=== PATIENT | female | born 1960 | race Caucasian/White ===

== ENCOUNTER 2018-11-20 09:56 | Inpatient (IN) | payer OTHER ==
[2018-11-11 17:18] VITALS: BMI 37.5
[~2018-11-20 09:56] MED LIST: CEFAZOLIN 2 GM in DEXTROSE 5%-WATER - 50 ML IVPB ONE; ROPIVICAINE 0.2%/MORPH PF/KETOROLAC - 51ML DISP.SYRINGE IA ONE; TRANEXAMIC ACID 1000 MG/10 ML VIAL IVPUSH ONE; VANCOMYCIN 1,000 MG in DEXTROSE 5%-WATER - 250 ML IVPB ONE
[2018-11-20] MEDS ORDERED: VANCOMYCIN 1,000 MG in DEXTROSE 5%-WATER - 250 ML IVPB ONE (10:14)
[2018-11-20] MEDS ORDERED: TRANEXAMIC ACID 1000 MG/10 ML VIAL IVPUSH ONE (10:14)
[2018-11-20] MEDS ORDERED: CEFAZOLIN 2 GM in DEXTROSE 5%-WATER - 50 ML IVPB ONE (10:14)
[2018-11-20] MEDS ORDERED: BUPIVACAINE LIPOSOME/PF (EXPAREL) 266 MG/20 ML VIAL ONE (11:59)
[2018-11-20] MEDS ORDERED: MIDAZOLAM HCL 2 MG/2 ML SINGLE DOSE VIAL ONE (11:59)
[2018-11-20] MEDS ORDERED: EPINEPHrine/PF 1 MG/1 ML (1:1,000) AMPULE ONE (12:14)
[2018-11-20] MEDS ORDERED: BUPIVACAINE HCL/PF 2.5 MG/ML - 30 ML VIAL IJ ONE ×2 (12:14→12:34)
[2018-11-20] MEDS ORDERED: KETOROLAC TROMETHAMINE 60 MG/2 ML VIAL ONE ×2 (12:14→12:34)
[2018-11-20] MEDS ORDERED: MORPHINE SULFATE 10 MG/1 ML *VIAL ONE ×2 (12:16→12:47)
[2018-11-20] MEDS ORDERED: VANCOMYCIN 1,000 MG VIAL (RESTRICTED TO ID ONLY) ONE (13:17)
[2018-11-20] MEDS ORDERED: TRANEXAMIC ACID 1000 MG/10 ML VIAL ONE ×2 (13:40→15:36)
[2018-11-20] MEDS ORDERED: ceFAZolin SODIUM 1 GM VIAL ONE ×2 (13:40→15:36)
[2018-11-20] MEDS ORDERED: DEXAMETHASONE SOD PHOSPHATE 4 MG/1 ML VIAL ONE ×2 (13:50→15:36)
[2018-11-20] MEDS ORDERED: ONDANSETRON 4 MG/2 ML VIAL ONE ×2 (13:50→15:36)
[2018-11-20] MEDS ORDERED: BENZOIN/ALOE VERA/STORAX/TOLU 58 ML BOTTLE ONE (15:23)
--- NOTE | 2018-11-20 15:49 | PN ---
Progress Note (short form) - Note Progress Note: 58F s/p LEFT total knee replacement POD #0. -Pain control: per anaesthesia team. -DVT PPx: -Chemical: ASA 81mg PO BID x 6 weeks. -Mechanical: LOLLY's, SCD's. -Incentive spirometry q15 min. -PT/OT/Rehab, OOB. -WBAT LLE; full range of motion right knee. -Post-op Ancef x 2 doses. -f/u post-op TOV: 8 hours max. -f/u drain output. -f/u AM labs. -Diet as tolerated. -Care per medical hospitalist: Dr. Earl. -Discharge planning: f/u [facility] [place] [facility] 11/28/2018; call for appointment . -Will follow. Armani Barnes MD (Orthopaedic Surgery).
[2018-11-20] MEDS ORDERED: NITROGLYCERIN SUBLINGUAL 1/150 0.4 MG TAB SL PRN (15:52)
--- NOTE | 2018-11-20 15:52 | OP ---
Operative Note - Note: Operative Date: 11/20/18 Pre-Operative Diagnosis: Left knee DJD Operation: Left total knee replacement Implants: [employer]. Femur - 3. Tibia - 3. Poly - 11mm, PS. Patella - 27mm, symmetric Post-Operative Diagnosis: Same as Pre-op Surgeon: Armani Barnes Farm Machine Tender: Hugo Barnes Anesthesiologist/CAMERA MECHANIC: Don Fisher Anesthesia: Spinal Specimens Removed: Bone, soft tissue Estimated Blood Loss (mls): 0 Drains & Tubes with Location: 1 x deep HemoVac Fluid Volume Replaced (mls): 1,000 (Crystalloid) Operative Report Dictated: Yes
[2018-11-20] MEDS ORDERED: ONDANSETRON 4 MG/2 ML VIAL IVPUSH PRN ×2 (15:53→15:54)
[2018-11-20] MEDS ORDERED: oxyCODONE HCL 5 MG TABLET PO PRN (15:53)
[2018-11-20] MEDS ORDERED: MAGNESIUM HYDROX 2400MG/30ML ORAL SUSPENSION 30 ML CUP PO PRN (15:54)
[2018-11-20] MEDS ORDERED: MAG HYDROX/AL HYDROX/SIMETH 30 ML UNIT-DOSE CUP PO PRN (15:54)
[2018-11-20] MEDS ORDERED: LACTATED RINGERS SOLUTION 1,000 ML IV SCH (16:00)
[2018-11-20] MEDS ORDERED: ACETAMINOPHEN 325 MG TABLET (FP) PO SCH (16:00)
[2018-11-20] MEDS ORDERED: ACETAMINOPHEN 325 MG TABLET (FP) ONE (16:56)
[2018-11-20] MEDS: LACTATED RINGERS SOLUTION 1,000 ML IV SCH (18:05)
--- NOTE | 2018-11-20 18:48 | HP ---
Admitting History and Physical - Admission Chief Complaint: left knee pain History of Present Illness: 58 yo with worsening left knee pain came in for TKR with Dr Barnes. currently denies chest pain, palpitations, nausea, vomiting, diarrhea, fever History Source: Patient Limitations to Obtaining History: No Limitations - Past Medical History Cardiovascular: Yes: HTN Psych: Yes: Depression - Smoking History Smoking history: Former smoker Have you smoked in the past 12 months: Yes If you are a former smoker, when did you quit?: 2008 - Alcohol/Substance Use Hx Alcohol Use: Yes (RARELY) Home Medications - Allergies Allergies/Adverse Reactions: Allergies Allergy/AdvReac Type Severity Reaction Status Date / Time No Known Allergies Allergy Verified 11/11/18 16:58 - Home Medications Home Medications: Ambulatory Orders Aspirin [ASA -] 81 mg PO DAILY 11/11/18 Atorvastatin Ca [Lipitor] 20 mg PO HS 11/11/18 Budesonide/Formeterol Fumarate [SYMBICORT 160/4.5mcg -] 1 inh PO BID 11/11/18 Escitalopram Oxalate [Lexapro -] 10 mg PO HS 11/11/18 Famotidine 20 mg PO DAILY 11/11/18 Isosorbide Mononitrate [Isosorbide Mononitrate ER] 30 mg PO DAILY 11/11/18 Losartan Potassium 25 mg PO DAILY 11/11/18 Metoprolol Succinate 50 mg PO BID 11/11/18 Nitroglycerin [Nitrostat] 0.4 mg SL DAILY PRN 11/11/18 Ranolazine [Ranexa] 1,000 mg PO BID 11/11/18 Tiotropium [place] [Spiriva] 1 inh PO DAILY 11/11/18 Review of Systems - Review of Systems Constitutional: reports: No Symptoms, Chills Eyes: reports: No Symptoms HENT: reports: No Symptoms Neck: reports: No Symptoms Cardiovascular: reports: No Symptoms Respiratory: reports: No Symptoms Gastrointestinal: reports: No Symptoms Genitourinary: reports: No Symptoms Breasts: reports: No Symptoms Reported Musculoskeletal: reports: Joint Pain Integumentary: reports: No Symptoms Neurological: reports: No Symptoms Endocrine: reports: No Symptoms Hematology/Lymphatic: reports: No Symptoms Psychiatric: reports: No Symptoms (6) Physical Examination Vital Signs: Vital Signs Temperature 98.1 F 11/20/18 17:57 Pulse Rate 80 11/20/18 17:57 Respiratory Rate 18 11/20/18 17:57 Blood Pressure 118/53 L 11/20/18 17:57 O2 Sat by Pulse Oximetry (%) 100 11/20/18 17:57 Constitutional: Yes: Well Nourished, No Distress Eyes: Yes: WNL HENT: Yes: WNL Neck: Yes: WNL Cardiovascular: Yes: WNL Respiratory: Yes: WNL Gastrointestinal: Yes: WNL Renal/: Yes: WNL Musculoskeletal: Yes: Joint Stiffness Extremities: Yes: WNL Edema: No Peripheral Pulses WNL: Yes Integumentary: Yes: WNL Wound/Incision: Yes: Clean/Dry, Well Approximated, Dressing Dry and Intact Neurological: Yes: WNL ...Motor Strength: WNL Psychiatric: Yes: WNL Assessment/Plan 58 yo lady S/P left TKR. cont pain management. incentive spirometry. -GI, DVT prophylaxis. -cont stool sofeteners to avoid opoioid induced constipation -CAD: on aspirin, atorvastatin -major anxiety and depression: on lexapro -HTN: cont imdur, toprol XL, losartan -chronic COPD: cont bronchodilators -ID: ancef and vanco given empirically. -oral diet -PT/OT/OOB as tolerated -AM labs pending -assessment and plan discussed with pt and medical staff
[2018-11-20] MEDS: oxyCODONE HCL 5 MG TABLET PO PRN ×2 (20:13→22:56)
[2018-11-20] MEDS: ASPIRIN COATED 81 MG TABLET.EC PO SCH (22:29)
[2018-11-20] MEDS: ATORVASTATIN CA 20 MG TABLET (FP) PO SCH (22:29)
[2018-11-20] MEDS: RANOLAZINE E.R. 500 MG TABLET (FP) PO SCH (22:29)
[2018-11-20] MEDS: SENNOSIDES/DOCUSATE COMBO (SENNA PLUS) TABLET (UD) PO SCH (22:29)
[2018-11-20] MEDS: ESCITALOPRAM OXALATE 10 MG TABLET (FP) PO SCH (22:32)
[2018-11-20] MEDS: BUDESONIDE/FORMETEROL FUMARATE 160/4.5 mcg INHALER IH SCH (22:35)
[2018-11-20] MEDS: CEFAZOLIN 2 GM/D5W 2 GM/50 ML ML IVPB SCH (22:56)
[2018-11-20] MEDS: ACETAMINOPHEN 325 MG TABLET (FP) PO SCH (23:01)
[2018-11-21] MEDS ORDERED: VANCOMYCIN 1 GRAM (PRE-DOCKED) 1,000 MG/250 ML BAG IVPB ONE (00:01)
--- NOTE | 2018-11-21 05:57 | OP ---
DATE OF OPERATION: DATE OF DICTATION: 11/20/2018 SURGEON: Armani Barnes MD ASSISTANTS: Hugo Barnes MD and KAILYN Larsen PREOPERATIVE DIAGNOSIS: Tricompartment osteoarthritis, left knee. POSTOPERATIVE DIAGNOSIS: Tricompartment osteoarthritis, left knee. OPERATION PERFORMED: Left total knee arthroplasty (posterior stabilized, cemented [place]). ANESTHESIA: Conscious sedation with spinal anesthesia and peripheral nerve block. ANTIBIOTICS GIVEN: Kefzol 2 g, vancomycin 1 g preop; Kefzol 1 g given at the time of release of the tourniquet. TOURNIQUET TIME: 1 hour and 40 minutes. OPERATION DETAILS: Patient correctly identified, brought in the operating room. Left lower extremity was prepped and draped in the routine manner with Betadine scrub solution, wiped off with alcohol, DuraPrep applied. Timeout was called. Imaging was available for intraoperative evaluation. Under a bloodless field, midline incision made. Dissection was taken through the skin and subcutaneous tissues to the prepatellar and quadriceps mechanism. The epimysium of the medial vastus muscle was lifted off the muscle. The proximal tibia soft tissue was dissected off the actual bone bed. The incision was curved at the level of the inferior pole of the patella to the posteromedial aspect of the knee to itself up with the vastus medialis dissection. The vastus medialis was then dissected off the intermuscular septum as well as the linea aspera diathermization of small vessels with bipolar Bovie utilized. This enabled easy freeing of the vastus medialis accordingly. The knee revealed the presence of severe tricompartment osteoarthritis. The patella was subluxed laterally with the vastus muscle as one en bloc as a subvastus approach. The extramedullary jig system of [employer] utilized for the tibial cut. The tibial cut was made 90 degrees to the shaft of the tibia. The sizing was for a size 3 component, and the appropriate preparation of the tibial bed performed using the appropriate initial starter drill and the finned broach for the tibial component. Once this had been performed, the femur entry was performed just above the intercondylar notch. The femoral jig was set, keeping the joint line in original position, by setting it to 8 mm distal femoral resection. The external rotation of the component was 3 degrees. The jig was set to simulate [place] line and the transepicondylar axis. Measurement for the jig system was for also a size 3 femoral component. The appropriate block was seated on the distal femoral bone bed, and the cuts were made appropriately using an oscillating saw. Once this had been performed, a sham realignment was performed to simply look at the limb alignment and the parallelity of the tibial and femoral cuts in the coronal plane. This proved to be excellent. The flexion and extension gaps were measured at 11 mm. The patella was then cut from, again using [place] principles from patella to quadriceps tendon, and a 27-mm jig seated onto the patella for appropriate seating of the patella component. Once we were satisfied with the trialing of all the components and this measured size 3 femur, size 3 tibia with an 11-mm posterior-stabilized spacer and associated tibial cut for a 3.7-mm patellar button and tracking of the appropriate components was noted to be excellent and stability in both flexion and extension in the coronal and sagittal plane noted to be well maintained and appropriate tension of the collateral ligaments tested at 90 degrees of flexion, we elected to go ahead with cementing of these 3 above-mentioned components. The bone bed was thoroughly lavaged with saline. Cementing was in 1 stage, first tibia, then femur, and then patella. All extraneous cement was removed. Once the cement had cured, the tissues were washed readily and rid of all loose fragmented cement. A composite of pain management cocktail was inserted into the periarticular tissues liberally throughout for postoperative pain management. The polyethylene 11-mm posterior-stabilized component was inserted. The knee was reduced, and excellent alignment and tracking were noted throughout. No complications. Closure: First a 1/8-inch Hemovac drain was placed into the subvastus bed, and the soft tissues were closed with number 1 Vicryl, subcutaneous 1 and 2-0 Vicryl, skin 3-0 Monocryl with Steri-Strips. A light dressing applied. No complications. Postop x-rays were excellent. Patient transferred to the floor thereafter. MD COMPA Espinosa/[id number] MTDD
[2018-11-21] MEDS: ACETAMINOPHEN 325 MG TABLET (FP) PO SCH ×3 (06:49→18:00)
[2018-11-21] MEDS: CEFAZOLIN 2 GM/D5W 2 GM/50 ML ML IVPB SCH (06:54)
[2018-11-21] MEDS: oxyCODONE HCL 5 MG TABLET PO PRN ×2 (06:54→13:28)
[2018-11-21 08:02] LABS: HEMATOCRIT 33.4 % (32.4-45.2); HEMOGLOBIN 11.4 GM/dl (10.7-15.3); MCH 31.9 pg (25.7-33.7); MCHC 34.1 g/dl (32.0-36.0); MEAN CELL VOLUME 93.5 fl (80-96); MEAN PLT VOLUME 10.1 fl (7.5-11.1); PLATELET COUNT 168 K/MM3 (134-434); RBC 3.57 M/mm3 (3.60-5.2); RDW 12.6 % (11.6-15.6); WHITE BLOOD COUNT 9.3 K/mm3 (4.0-10.8)
[2018-11-21 08:22] LABS: CALCIUM 8.6 mg/dl (8.5-10); CREATININE 0.7 mg/dl (0.55-1.3); POTASSIUM 4.6 mmol/L (3.5-5.1)
[2018-11-21] MEDS ORDERED: PT OWN MED DRAWER 7, Y5N ONE ×2 (09:28→21:23)
[2018-11-21] MEDS: FAMOTIDINE 20 MG TABLET PO SCH (10:35)
[2018-11-21] MEDS: ISOSORBIDE MONONITRATE 30 MG TAB.SR.24H (FP) PO SCH (10:35)
[2018-11-21] MEDS: ASPIRIN COATED 81 MG TABLET.EC PO SCH ×2 (10:36→21:37)
[2018-11-21] MEDS: PANTOPRAZOLE 40 MG TABLET (FP) PO SCH (10:36)
[2018-11-21] MEDS: RANOLAZINE E.R. 500 MG TABLET (FP) PO SCH ×2 (10:36→21:37)
[2018-11-21] MEDS: SENNOSIDES/DOCUSATE COMBO (SENNA PLUS) TABLET (UD) PO SCH ×2 (10:37→21:37)
[2018-11-21] MEDS: LOSARTAN POTASSIUM 25 MG TABLET PO SCH (10:40)
[2018-11-21] MEDS: TIOTROPIUM BROMIDE 2.5 MCG (SPIRIVA) RESPIMAT INHALER IH SCH (10:42)
[2018-11-21] MEDS: BUDESONIDE/FORMETEROL FUMARATE 160/4.5 mcg INHALER IH SCH ×2 (10:42→21:41)
--- NOTE | 2018-11-21 11:41 | SPA.POSTOP ---
- POST-OP NOTE POD #1 s/p Left total knee replacment Denies n/v/f/c, CP or SOB. Slight dizziness with OOB to chair this am, resolved now. Last Vital Signs Temp Pulse Resp BP Pulse Ox 97.8 F 77 19 162/70 94 L 11/21/18 05:00 11/21/18 05:00 11/21/18 05:00 11/21/18 05:00 11/21/18 08:19 [place]: 150ml serosangrenous Physical Exam General: No acute distress. Pulm: Clear to auscultation bilat anteriorly Cor: Regular rhythm Abd: Soft. Non-tender. No distention LE: Soft, non-tender bilat. SCD's bilat. 5/5 dorsi/plantar flexion, EHL b/l. Dressing c/d/i CBC, BMP 11/21/18 07:05 11/21/18 07:05 A/P: 58 yo female s/p Left TKR Diet as tolerated, oob to chair and ambulate with PT today. Pain managemnt with oral pain meds. DVT ppx with SCD/aspirin 81 mg oral bid Stool softners D/w Dr. Barnes
--- NOTE | 2018-11-21 15:37 | PN ---
Progress Note (short form) - Note Progress Note: S: Pt. sitting in chair. No c/o. Ambulating with assist. O: VAS 2/10 A/P: POD #1 s/p Left TKR 1. continue pain meds as ordered 2. no anesthetic complications
[2018-11-21] MEDS: LACTATED RINGERS SOLUTION 1,000 ML IV SCH (18:00)
--- NOTE | 2018-11-21 18:28 | PN ---
Progress Note, Physician Chief Complaint: left knee pain - Current Medication List Current Medications: Active Medications Acetaminophen (Tylenol -) 650 mg PO Q6H [facility] Last Admin: 11/21/18 18:00 Dose: 650 mg Al Hydroxide/Mg Hydroxide (Mylanta Oral Suspension -) 30 ml PO Q4H PRN PRN Reason: DYSPEPSIA Aspirin (Ecotrin -) 81 mg PO BID [facility] Last Admin: 11/21/18 10:36 Dose: 81 mg Atorvastatin Calcium (Lipitor -) 20 mg PO HS [facility] Last Admin: 11/20/18 22:29 Dose: 20 mg Budesonide/Formoterol Fumarate (Symbicort 160/4.5mcg -) 1 puff IH BID [facility] Last Admin: 11/21/18 10:42 Dose: 1 puff Escitalopram Oxalate (Lexapro -) 10 mg PO [facility] Last Admin: 11/20/18 22:32 Dose: 10 mg Famotidine (Pepcid -) 20 mg PO DAILY [facility] Last Admin: 11/21/18 10:35 Dose: 20 mg Lactated Ringer's (Lactated Ringers Solution) 1,000 mls @ 125 mls/hr IV ASDIR [facility] Last Admin: 11/21/18 18:00 Dose: Not Given Isosorbide Mononitrate (Imdur -) 30 mg PO DAILY [facility] Last Admin: 11/21/18 10:35 Dose: 30 mg Losartan Potassium (Cozaar -) 25 mg PO DAILY [facility] Last Admin: 11/21/18 10:40 Dose: 25 mg Magnesium Hydroxide (Milk Of Magnesia -) 30 ml PO PRN PRN PRN Reason: CONSTIPATION Metoprolol Succinate (Toprol Xl -) 50 mg PO BID [facility] Last Admin: 11/21/18 10:35 Dose: 50 mg Nitroglycerin (Nitrostat -) 0.4 mg SL DAILY PRN PRN Reason: CHEST PAIN Ondansetron HCl (Zofran Injection) 4 mg IVPUSH Q6H PRN PRN Reason: NAUSEA AND/OR VOMITING Oxycodone HCl (Roxicodone -) 5 mg PO Q3H PRN PRN Reason: PAIN LEVEL 1-5 Oxycodone HCl (Roxicodone -) 10 mg PO Q3H PRN PRN Reason: PAIN LEVEL 6-10 Last Admin: 11/21/18 13:28 Dose: 10 mg Pantoprazole Sodium (Protonix -) 40 mg PO DAILY [facility] Last Admin: 11/21/18 10:36 Dose: 40 mg Ranolazine (Ranexa -) 1,000 mg PO BID [facility] Last Admin: 11/21/18 10:36 Dose: 1,000 mg Senna/Docusate Sodium (Pericolace -) 2 tablet PO BID [facility] Last Admin: 11/21/18 10:37 Dose: 2 tablet Tiotropium [place] (Spiriva Respimat) 2 puff IH DAILY [facility] Last Admin: 11/21/18 10:42 Dose: 2 puff - Objective Vital Signs: Vital Signs Temperature 98.6 F 11/21/18 15:09 Pulse Rate 74 11/21/18 15:09 Respiratory Rate 18 11/21/18 15:09 Blood Pressure 112/43 L 11/21/18 15:09 O2 Sat by Pulse Oximetry (%) 94 L 11/21/18 15:09 Constitutional: Yes: Well Nourished, No Distress Eyes: Yes: WNL HENT: Yes: WNL Neck: Yes: WNL Cardiovascular: Yes: WNL Respiratory: Yes: WNL Gastrointestinal: Yes: WNL Genitourinary: Yes: WNL Musculoskeletal: Yes: WNL, Joint Stiffness Extremities: Yes: WNL Edema: No Peripheral Pulses WNL: Yes Integumentary: Yes: WNL Wound/Incision: Yes: Clean/Dry, Well Approximated, Dressing Dry and Intact Neurological: Yes: WNL ...Motor Strength: WNL Psychiatric: Yes: WNL Labs: CBC, BMP 11/21/18 07:05 11/21/18 07:05 Assessment/Plan 58 yo lady S/P left TKR POD#1. cont pain management. incentive spirometry. -GI, DVT prophylaxis. -cont stool sofeteners to avoid opoioid induced constipation -CAD: on aspirin, atorvastatin -major anxiety and depression: on lexapro -HTN: cont imdur, toprol XL, losartan -chronic COPD: cont bronchodilators. no pulmonary complaints. -ID: ancef and vanco given empirically. -oral diet; well tolerated -PT/OT/OOB as tolerated -assessment and plan discussed with pt and medical staff -PA home planned within 48 hours.
[2018-11-21] MEDS: ATORVASTATIN CA 20 MG TABLET (FP) PO SCH (21:37)
[2018-11-21] MEDS: ESCITALOPRAM OXALATE 10 MG TABLET (FP) PO SCH (21:37)
[2018-11-22] MEDS: ACETAMINOPHEN 325 MG TABLET (FP) PO SCH ×3 (01:24→13:38)
[2018-11-22] MEDS: oxyCODONE HCL 5 MG TABLET PO PRN ×3 (04:56→13:38)
[2018-11-22 08:03] LABS: HEMATOCRIT 31.8 % (32.4-45.2); HEMOGLOBIN 10.6 GM/dl (10.7-15.3); MCH 31.5 pg (25.7-33.7); MCHC 33.4 g/dl (32.0-36.0); MEAN CELL VOLUME 94.3 fl (80-96); MEAN PLT VOLUME 9.8 fl (7.5-11.1); PLATELET COUNT 156 K/MM3 (134-434); RBC 3.37 M/mm3 (3.60-5.2); RDW 13.3 % (11.6-15.6); WHITE BLOOD COUNT 5.7 K/mm3 (4.0-10.8)
[2018-11-22] MEDS: ASPIRIN COATED 81 MG TABLET.EC PO SCH (09:41)
[2018-11-22] MEDS: LOSARTAN POTASSIUM 25 MG TABLET PO SCH (09:42)
[2018-11-22] MEDS: FAMOTIDINE 20 MG TABLET PO SCH (09:42)
[2018-11-22] MEDS: PANTOPRAZOLE 40 MG TABLET (FP) PO SCH (09:42)
[2018-11-22] MEDS: ISOSORBIDE MONONITRATE 30 MG TAB.SR.24H (FP) PO SCH (09:42)
[2018-11-22] MEDS: RANOLAZINE E.R. 500 MG TABLET (FP) PO SCH (09:42)
[2018-11-22] MEDS: SENNOSIDES/DOCUSATE COMBO (SENNA PLUS) TABLET (UD) PO SCH (09:42)
[2018-11-22] MEDS: TIOTROPIUM BROMIDE 2.5 MCG (SPIRIVA) RESPIMAT INHALER IH SCH (09:43)
[2018-11-22] MEDS: BUDESONIDE/FORMETEROL FUMARATE 160/4.5 mcg INHALER IH SCH (09:44)
--- NOTE | 2018-11-22 10:05 | SPA.POSTOP ---
- POST-OP NOTE POD #2 s/p Left knee replacment Patient resting comfortably. Pain management via prn meds. Pt passing flatus/ stool via clostomy. Denies n/v/f/c, CP or SOB. Last Vital Signs Temp Pulse Resp BP Pulse Ox 99.0 F 72 16 120/54 L 96 /05/01 06:39 11/22/18 06:39 11/22/18 08:25 11/22/18 06:39 11/22/18 08:25 Physical Exam General: No acute distress. Pulm: Clear to auscultation bilat anteriorly Cor: Regular rhythm Abd: Soft. Non-tender. No distention LE: Soft, non-tender bilat. SCD's bilat. 5/5 dorsi/plantar flexion/ EHL b/l Left surgical knee dressing c/d/i, hemovac drain removed(tip intact) CBC, BMP 11/22/18 07:21 11/21/18 07:05 A/p: 58 yo female s/p Left total knee replacement Plan for discharge today with home services Surgical dressing to remain in place. No showers/baths. Oral pain medications for pain managment and stool softners for constipation. Follow-up with Dr. Barnes next week D/w Dr. Barnes
--- NOTE | 2018-11-22 12:14 | DS ---
Physical Examination Vital Signs: Vital Signs Temperature 98.8 F 11/22/18 10:00 Pulse Rate 79 11/22/18 10:00 Respiratory Rate 17 11/22/18 10:00 Blood Pressure 111/48 L 11/22/18 10:00 O2 Sat by Pulse Oximetry (%) 96 11/22/18 10:00 Constitutional: Yes: Well Nourished, No Distress Eyes: Yes: WNL HENT: Yes: WNL Neck: Yes: WNL Cardiovascular: Yes: WNL Respiratory: Yes: WNL Gastrointestinal: Yes: WNL Renal/: Yes: WNL Musculoskeletal: Yes: WNL, Joint Stiffness Extremities: Yes: WNL Edema: No Peripheral Pulses WNL: Yes Integumentary: Yes: WNL Wound/Incision: Yes: Clean/Dry, Well Approximated Neurological: Yes: WNL ...Motor Strength: WNL Psychiatric: Yes: WNL Labs: CBC, BMP 11/22/18 07:21 11/21/18 07:05 Discharge Summary Reason For Visit: BURSITIS LEFT KNEE Hospital Course: 58 yo lady S/P left TKR POD#2 cont pain management. incentive spirometry. -GI, DVT prophylaxis. -cont stool sofeteners to avoid opoioid induced constipation -CAD: on aspirin, atorvastatin -major anxiety and depression: on lexapro -HTN: cont imdur, toprol XL, losartan -chronic COPD: cont bronchodilators. no pulmonary complaints. -ID: ancef and vanco given empirically. -oral diet; well tolerated -PT/OT/OOB as tolerated -DC planned for today - Instructions Diet, Activity, Other Instructions: Dr. Barnes Discharge Instructions for Knee Replacement Post Operative Instructions Physical activity Physical Therapist will come to your home for the first 5 days. You will be set up with outpatient PT at your first post-operative visit. Use assistive devices for ambulation at all times. Weight bearing as tolerated on your surgical side. Do not put pillow under knee. May put pillow under heel. Wound care Leave your surgical dressing in place. Do not change the dressing until seen by your surgeon in the office. No baths or showers. Do not submerge your incision. Do not apply any ointments or lotions to your incision. Please call the office if your dressing is soiled/dirty or is falling off. Apply Graduated Compression Stockings (TEDS) to both lower extremities - remove daily for hygiene ONLY. Diet There are no dietary restrictions. Eat healthy, high-fiber foods. Drink 6 to 8 glasses of liquid each day. This will assist in keeping your bowels are regular. Pain management Any pain prescription medication ordered should be taken as prescribed for moderate to severe pain. Do not take additional Tylenol while taking Percocet. Take Aspirin 81 mg two times a day for a total of 6 weeks to prevent blood clots. Call Dr. Barnes for any of the following: Severe pain not relieved by medication Fever of 101 or higher Excessive bleeding or drainage on dressing Inability to urinate If you experience chest pain or shortness of breath, please seek emergency care immediately. Please call the office at to confirm your post-op appointment for the week following surgery. [employer] [phone] - Home Medications Comprehensive Discharge Medication List: Ambulatory Orders Atorvastatin Ca [Lipitor] 20 mg PO HS 11/11/18 Budesonide/Formeterol Fumarate [SYMBICORT 160/4.5mcg -] 1 inh PO BID 11/11/18 Escitalopram Oxalate [Lexapro -] 10 mg PO HS 11/11/18 Famotidine 20 mg PO DAILY 11/11/18 Isosorbide Mononitrate [Isosorbide Mononitrate ER] 30 mg PO DAILY 11/11/18 Losartan Potassium 25 mg PO DAILY 11/11/18 Metoprolol Succinate 50 mg PO BID 11/11/18 Nitroglycerin [Nitrostat] 0.4 mg SL DAILY PRN 11/11/18 Ranolazine [Ranexa] 1,000 mg PO BID 11/11/18 Tiotropium [place] [Spiriva] 1 inh PO DAILY 11/11/18 Acetaminophen [Tylenol .Regular Strength -] 1,000 mg PO Q8H tablet 11/22/18 Aspirin Coated [Ecotrin -] 81 mg PO BID #90 tablet.ec 11/22/18 Docusate Sodium [Colace -] 100 mg PO BID #14 capsule 11/22/18 Oxycodone HCl 5 mg PO Q6H PRN #30 tablet MDD 8 11/22/18
[2018-11-22 13:57] VITALS: BP 110/49; PULSE 82; TEMP 99
--- NOTE | 2018-11-22 16:05 | PATH ---
Surgical Pathology Report Patient Name: ROLAN MAHARAJ Med. Rec. #: [id number] /Age/Gender: 1960 (Age: 58) / F Account: [id number] Location: [facility] MED-SURG Taken: 11/20/2018 Received: 11/20/2018 Reported: 11/22/2018 Physicians: Armani Barnes M.D. Specimen(s) Received LEFT KNEE BONES Clinical History Bursitis left knee Final Diagnosis KNEE BONES, LEFT,TOTAL KNEE REPLACEMENT: DEGENERATIVE JOINT DISEASE. Electronically Signed Sultana Ybarra M.D. Gross Description Received in formalin labeled "left knee bones," is a 9.5 x 9.0 x 1.5 cm aggregate of multiple portions of bone and soft tissue. The tibial plateau measures 6.9 x 5.0 x 1.8 cm. The articular surfaces are romano-yellow and focally granular. The underlying trabecular bone is yellow and hard. Sieve Repairer sections are submitted in one cassette, following decalcification. /11/21/2018 [facility]
== END 2018-11-22 13:45 | disposition home health service (06) | DRG 470 ==
LOC: FM/S 09:56
PROVIDERS: ADMIT Orthopaedic Surgery Orthopaedic Surgery of the Spine; ATTEND Internal Medicine
PROC: 0SRD0J9 Replacement of Left Knee Joint with Synthetic Substitute, Cemented, Open Approach (ICD-10-PCS; principal; 2018-11-20 14:08)
DX: M17.12 Unilateral primary osteoarthritis, left knee (principal); I10 Essential (primary) hypertension; I25.10 Atherosclerotic heart disease of native coronary artery without angina pectoris; F41.8 Other specified anxiety disorders; J44.9 Chronic obstructive pulmonary disease, unspecified; Z87.891 Personal history of nicotine dependence
CPT/HCPCS: 36415; 73560-TC-LT-FY; 80048; 85027; 88304-TC; 88311-TC; 94760; 97116-GP; 97163-GP

== ENCOUNTER 2019-06-11 08:00 | Inpatient (IN) | payer OTHER ==
[2019-06-05 11:45] VITALS: BMI 38.5
[2019-06-11] MEDS ORDERED: TRANEXAMIC ACID 1000 MG/10 ML VIAL IVPUSH ONE (12:00)
[2019-06-11] MEDS ORDERED: CEFAZOLIN 2 GM in DEXTROSE 5%-WATER - 50 ML IVPB ONE (12:00)
[2019-06-11] MEDS ORDERED: MIDAZOLAM HCL 2 MG/2 ML SINGLE DOSE VIAL ONE ×2 (12:29→16:20)
[2019-06-11] MEDS ORDERED: SODIUM CHLORIDE 0.9% P/F 10 ML VIAL IJ ONE ×2 (12:30→14:24)
[2019-06-11] MEDS ORDERED: BUPIVACAINE LIPOSOME/PF (EXPAREL) 266 MG/20 ML VIAL ONE (12:30)
[2019-06-11] MEDS ORDERED: BENZOIN/ALOE VERA/STORAX/TOLU 58 ML BOTTLE ONE (13:58)
[2019-06-11] MEDS ORDERED: TRANEXAMIC ACID 1000 MG/10 ML VIAL ONE (14:24)
[2019-06-11] MEDS ORDERED: DEXAMETHASONE SOD PHOSPHATE 4 MG/1 ML VIAL ONE ×2 (14:24→15:12)
[2019-06-11] MEDS ORDERED: ONDANSETRON 4 MG/2 ML VIAL ONE ×2 (14:24→15:12)
[2019-06-11] MEDS ORDERED: ceFAZolin SODIUM 1 GM VIAL ONE (14:24)
[2019-06-11] MEDS ORDERED: PHENYLEPHRINE HCL 10 MG/1 ML SINGLE DOSE VIAL ONE (14:50)
[2019-06-11] MEDS ORDERED: MAG HYDROX/AL HYDROX/SIMETH 30 ML UNIT-DOSE CUP PO PRN (16:35)
[2019-06-11] MEDS ORDERED: ONDANSETRON 4 MG/2 ML VIAL IVPUSH PRN ×2 (16:35→17:38)
[2019-06-11] MEDS ORDERED: MAGNESIUM HYDROX 2400MG/30ML ORAL SUSPENSION 30 ML CUP PO PRN (16:35)
--- NOTE | 2019-06-11 16:42 | PN ---
Progress Note (short form) - Note Progress Note: S/P R TKA POD #0 - Pain control. -DVT PPx: -Chemical: ASA 81 mg po BID x 6 weeks -Mechanical: LOLLY's, SCD's -Incentive Spirometry. -PT/OT/Rehab, OOB. -WBAT RLE. -f/u drain output -f/u am labs. -Care per medical hospitalist team. -Discharge planning: f/u [facility] [place] office administrative professional for appointment: -Will follow. Armani Barnes MD (Orthopaedic Surgery)
--- NOTE | 2019-06-11 16:44 | OP ---
Operative Note - Note: Operative Date: 06/11/19 Pre-Operative Diagnosis: right Knee osteoarthritis Operation: right total knee arthroplasty Post-Operative Diagnosis: Same as Pre-op Surgeon: Armani Barnes Small Craft Operator: Hugo Barnes Anesthesiologist/WIRE SPINNER: John Rebolledo Anesthesia: Spinal, Local (block with sedation) Specimens Removed: distal femur, proximal tibia, partial patella Estimated Blood Loss (mls): 100 Drains & Tubes with Location: hemavac right knee Operative Report Dictated: Yes
[2019-06-11] MEDS ORDERED: LACTATED RINGERS SOLUTION 1,000 ML IV SCH ×2 (16:45→17:45)
[2019-06-11] MEDS ORDERED: oxyCODONE HCL 5 MG TABLET PO PRN (17:38)
[2019-06-11] MEDS ORDERED: ACETAMINOPHEN 1000 MG/100 ML VIAL (NON FORMULARY) IVPB ONE (17:38)
[2019-06-11] MEDS ORDERED: ACETAMINOPHEN INJECTION 100 ML IVPB ONE (17:41)
[2019-06-11] MEDS ORDERED: NITROGLYCERIN SUBLINGUAL 1/150 0.4 MG TAB SL PRN (20:06)
--- NOTE | 2019-06-11 20:06 | HP ---
HISTORY OF PRESENT ILLNESS: 59 year-old female with a PMH significant for HTN, HLD, asthma, COPD, CAD s/p ABIOLA x 1, GERD, iron-deficiency anemia, depression, and right knee osteoarthritis s/p right total knee arthroplasty with Dr. Barnes on 06/11/19. Recent Travel: No PAST MEDICAL HISTORY: Hypertension Hyperlipidemia Asthma COPD Coronary artery disease GERD Iron-deficiency anemia Depression PAST SURGICAL HISTORY: Cardiac drug-eluting stent 2014 Bowel resection with ileoanbal pouch 2017 Bilateral carpal tunnel release Cervical spine surgery x 2 Bilateral Lasik surgery Gastric bypass 2017 Portacath placement Social History: , certified residential medication aide on disability Smoking: former, smoked 34 years Alcohol: no Drugs: no Family history: mother breast cancer, father heart disease Allergies No Known Allergies Allergy (Verified 06/11/19 10:56) HOME MEDICATIONS: Home Medications Medication Instructions Recorded Atorvastatin Ca [Lipitor] 20 mg PO HS 11/11/18 Budesonide/Formeterol Fumarate 1 inh PO BID 11/11/18 [SYMBICORT 160/4.5mcg -] Escitalopram Oxalate [Lexapro -] 10 mg PO HS 11/11/18 Famotidine 20 mg PO DAILY 11/11/18 Isosorbide Mononitrate [Isosorbide 30 mg PO DAILY 11/11/18 Mononitrate ER] Losartan Potassium 25 mg PO DAILY 11/11/18 Metoprolol Succinate 50 mg PO BID 11/11/18 Nitroglycerin [Nitrostat] 0.4 mg SL DAILY PRN 11/11/18 Ranolazine [Ranexa] 1,000 mg PO BID 11/11/18 Tiotropium [place] [Spiriva] 1 inh PO DAILY 11/11/18 Acetaminophen [Tylenol .Regular 1,000 mg PO Q8H tablet 11/22/18 Strength -] Aspirin Coated [Ecotrin -] 81 mg PO HS 06/05/19 REVIEW OF SYSTEMS CONSTITUTIONAL: Absent: fever, chills, diaphoresis, generalized weakness, malaise, loss of appetite, weight change HEENT: Absent: rhinorrhea, nasal congestion, throat pain, throat swelling, difficulty swallowing, mouth swelling, ear pain, eye pain, visual changes CARDIOVASCULAR: Absent: chest pain, syncope, palpitations, irregular heart rate, lightheadedness , peripheral edema RESPIRATORY: Absent: cough, shortness of breath, dyspnea with exertion, orthopnea, wheezing, stridor, hemoptysis GASTROINTESTINAL: Absent: abdominal pain, abdominal distension, nausea, vomiting, diarrhea, constipation, melena, hematochezia GENITOURINARY: Absent: dysuria, frequency, urgency, hesitancy, hematuria, flank pain, genital pain MUSCULOSKELETAL: Absent: myalgia, arthralgia, joint swelling, back pain, neck pain SKIN: Absent: rash, itching, pallor HEMATOLOGIC/IMMUNOLOGIC: Absent: easy bleeding, easy bruising, lymphadenopathy, frequent infections ENDOCRINE: Absent: unexplained weight gain, unexplained weight loss, heat intolerance, cold intolerance NEUROLOGIC: Absent: headache, focal weakness or paresthesias, dizziness, unsteady gait, seizure, mental status changes, bladder or bowel incontinence PSYCHIATRIC: Absent: anxiety, depression, suicidal or homicidal ideation, hallucinations. PHYSICAL EXAMINATION Vital Signs - 24 hr 06/11/19 06/11/19 06/11/19 10:53 17:24 17:25 Temperature 97.9 F 97.5 F L Pulse Rate 65 72 74 Respiratory 18 17 18 Rate Blood Pressure 130/72 133/63 125/60 O2 Sat by Pulse 100 100 Oximetry (%) 06/11/19 06/11/19 06/11/19 17:30 17:35 17:40 Temperature Pulse Rate 72 71 70 Respiratory 18 16 16 Rate Blood Pressure 123/58 L 130/53 L 124/52 L O2 Sat by Pulse 100 99 99 Oximetry (%) 06/11/19 06/11/19 06/11/19 17:55 18:10 18:58 Temperature 97.5 F L 98 F Pulse Rate 71 72 76 Respiratory 17 16 18 Rate Blood Pressure 123/54 L 121/49 L 122/55 L O2 Sat by Pulse 99 98 100 Oximetry (%) GENERAL: Awake, alert, and fully oriented, in no acute distress. HEAD: Normal with no signs of trauma. EYES: Pupils equal, round and reactive to light, extraocular movements intact, sclera anicteric, conjunctiva clear. No lid lag. EARS, NOSE, THROAT: Ears normal, nares patent, oropharynx clear without exudates. Moist mucous membranes. NECK: Normal range of motion, supple without lymphadenopathy, JVD, or masses. LUNGS: Breath sounds equal, clear to auscultation bilaterally. No wheezes, and no crackles. No accessory muscle use. HEART: Regular rate and rhythm, normal S1 and S2 without murmur, rub or gallop. ABDOMEN: Soft, nontender, not distended, normoactive bowel sounds, no guarding, no rebound, no masses. No hepatomegaly or splenomegaly. MUSCULOSKELETAL: Normal range of motion at all joints. No bony deformities or tenderness. No CVA tenderness. UPPER EXTREMITIES: 2+ pulses, warm, well-perfused. No cyanosis. No clubbing. No peripheral edema. RIGHT LOWER EXTREMITY: Surgical dressings c/d/i; ice pack; Hemovac drain NEUROLOGICAL: Cranial nerves II-XII intact. Normal speech. Normal gait. PSYCHIATRIC: Cooperative. Good eye contact. Appropriate mood and affect. SKIN: Warm, dry, normal turgor, no rashes or lesions noted, normal capillary refill. Pre op Hgb 11.1 BUN12 Cr 0.59 Intra op Ancef 2g; Vanc 1g EBL<100cc LR 1900ccc ASSESSMENT/PLAN: 59 year-old female with a PMH significant for HTN, HLD, asthma, COPD, CAD s/p ABIOLA x 1, GERD, iron-deficiency anemia, depression, and right knee osteoarthritis s/p right total knee arthroplasty. Right total knee arthroplasty 06/11/19 --POD #0 --perioperative antibiotics per surgery --pain management per surgery --ASA 81mg BID --protonix --bowel regimen --incentive spirometry --Hemovac drain, monitor output Hypertension --continue losartan Hyperlipidemia --continue Lipitor Asthma COPD --continue Spiriva, Symbicort Coronary artery disease s/p ABIOLA --continue Ranexa, isosorbide, nitro PRN, ToprolXL, Lipitor, ASA GERD --protonix Iron-deficiency anemia --continue ferrous sulfate Depression --continue Lexapro FEN Fluids: LR@125mL/hr Electrolytes: replete as indicated Nutrition: regular diet DVT prophylaxis: OOB, ambulation, SCDs, TEDs, ASA 81mg BID Physical therapy Dispo: continues to require inpatient care. Full code. Visit type - Emergency Visit Emergency Visit: No - New Patient This patient is new to me today: Yes Date on this admission: 06/13/19 - Critical Care Critical Care patient: No
[2019-06-11] MEDS: CEFAZOLIN 1 GM/D5W 1 GM/50 ML BAG IVPB SCH (21:06)
[2019-06-11] MEDS: ASCORBIC ACID 500 MG TABLET (FP) PO SCH (21:54)
[2019-06-11] MEDS: GABAPENTIN 300 MG CAPSULE PO SCH (21:54)
[2019-06-11] MEDS: SENNOSIDES/DOCUSATE COMBO (SENNA PLUS) TABLET (UD) PO SCH (21:54)
[2019-06-11] MEDS: ASPIRIN 81 MG CHEWABLE TABLETS PO SCH (21:54)
[2019-06-11] MEDS: RANOLAZINE E.R. 500 MG TABLET (FP) PO SCH (21:54)
[2019-06-11] MEDS: ESCITALOPRAM OXALATE 10 MG TABLET PO SCH (21:55)
[2019-06-11] MEDS: FERROUS SO4 325 MG TABLET (FP) PO SCH (21:55)
[2019-06-11] MEDS: oxyCODONE HCL 5 MG TABLET PO PRN (21:55)
[2019-06-11] MEDS: ATORVASTATIN CA 20 MG TABLET (FP) PO SCH (21:55)
[2019-06-12] MEDS ORDERED: ACETAMINOPHEN 500 MG TABLET (FP) PO SCH
[2019-06-12] MEDS: ACETAMINOPHEN 325 MG TABLET (FP) PO SCH ×4 (01:17→20:13)
[2019-06-12] MEDS: CEFAZOLIN 1 GM/D5W 1 GM/50 ML BAG IVPB SCH ×2 (03:16→09:51)
[2019-06-12] MEDS: oxyCODONE HCL 5 MG TABLET PO PRN ×2 (05:24→13:58)
[2019-06-12] MEDS: BUDESONIDE/FORMETEROL FUMARATE 160/4.5 mcg INHALER IH SCH ×3 (07:52→21:21)
[2019-06-12 08:20] LABS: CALCIUM 8.4 mg/dl (8.5-10); CREATININE 0.6 mg/dl (0.55-1.3); MAGNESIUM 1.8 mg/dL (1.8-2.4); POTASSIUM 4.6 mmol/L (3.5-5.1)
[2019-06-12 08:34] LABS: HEMATOCRIT 29.8 % (32.4-45.2); HEMOGLOBIN 9.9 GM/dl (10.7-15.3); MCH 30.5 pg (25.7-33.7); MCHC 33.2 g/dl (32.0-36.0); MEAN CELL VOLUME 91.9 fl (80-96); MEAN PLT VOLUME 9.8 fl (7.5-11.1); PLATELET COUNT 168 K/MM3 (134-434); RBC 3.25 M/mm3 (3.60-5.2); RDW 13.9 % (11.6-15.6); WHITE BLOOD COUNT 6.5 K/mm3 (4.0-10.8)
--- NOTE | 2019-06-12 08:58 | PN ---
Progress Note (short form) - Note Progress Note: ORTHOPAEDIC SURGERY POD #1 s/p right total knee arthroplasty Alert. Sitting in chair at bedside with legs in extension and towel roll under her heels. States she ambulated with walker to bathroom and spontaneously voided. C/o incisional pain. Adequate pain control with medications ordered. Denies n/v/f/c, CP, palpitations, SOB or SIDHU. Last Vital Signs Temp Pulse Resp BP Pulse Ox 98.6 F 79 20 131/50 L 98 06/12/19 06:00 06/12/19 06:00 06/12/19 06:00 06/12/19 06:00 06/12/19 06:51 CBC, BMP 06/12/19 07:29 06/12/19 07:29 Gen: alert. nad RLE: ice pack in place. dressing c/d/i. Hemovac 5 mL (serosang). All compartments soft. SCDs bilat. +2 DP/PT bilat. Foot warm. Knee flexion to 90 degrees. Problem List - Problems (1) Status post total right knee replacement using cement Assessment/Plan: S/P R TKA POD #1 - Pain control. -DVT PPx: -Chemical: ASA 81 mg po BID x 6 weeks -Mechanical: LOLLY's, SCD's -Incentive Spirometry. -PT/OT/Rehab, OOB. -WBAT LLE RLE. -Drain to be dc'd in AM -f/u am labs. -Care per medical hospitalist team. -Discharge planning: f/u [facility] [place] [facility] international marketing specialist for appointment : -Above discussed with my attending and agrees. Code(s): Z96.651 - PRESENCE OF RIGHT ARTIFICIAL KNEE JOINT (2) Osteoarthritis of right knee Code(s): M17.11 - UNILATERAL PRIMARY OSTEOARTHRITIS, RIGHT KNEE
[2019-06-12] MEDS: ASCORBIC ACID 500 MG TABLET (FP) PO SCH ×2 (09:49→21:22)
[2019-06-12] MEDS: GABAPENTIN 300 MG CAPSULE PO SCH ×2 (09:49→21:20)
[2019-06-12] MEDS: SENNOSIDES/DOCUSATE COMBO (SENNA PLUS) TABLET (UD) PO SCH ×2 (09:50→21:20)
[2019-06-12] MEDS: MULTIVITAMINS (DAILY MVI) TABLET (FP) PO SCH (09:50)
[2019-06-12] MEDS: FERROUS SO4 325 MG TABLET (FP) PO SCH ×2 (09:50→21:20)
[2019-06-12] MEDS: ASPIRIN 81 MG CHEWABLE TABLETS PO SCH ×2 (09:50→21:20)
[2019-06-12] MEDS: PANTOPRAZOLE 40 MG TABLET PO SCH (09:50)
[2019-06-12] MEDS ORDERED: PATIENT'S OWN MEDICATION (NON-FORMULARY) (Tiotropium Bromide [Spiriva] 1 INH) PO SCH (10:00)
[2019-06-12] MEDS ORDERED: PT OWN MED DRAWER 7, Y5N ONE (10:06)
[2019-06-12] MEDS: LOSARTAN POTASSIUM 25 MG TABLET PO SCH (11:06)
[2019-06-12] MEDS: ISOSORBIDE MONONITRATE 30 MG TAB.SR.24H (FP) PO SCH (11:07)
[2019-06-12] MEDS: TIOTROPIUM BROMIDE 2.5 MCG (SPIRIVA) RESPIMAT INHALER IH SCH (11:07)
[2019-06-12] MEDS: RANOLAZINE E.R. 500 MG TABLET (FP) PO SCH ×2 (11:07→21:21)
--- NOTE | 2019-06-12 12:08 | OP ---
DATE OF OPERATION: DATE OF DICTATION: 06/11/2019 SURGEON: Armani Barnes MD DATA EXAMINATION CLERK: Hugo Barnes MD and KAILYN Larsen PREOPERATIVE DIAGNOSIS: Tricompartmental osteoarthritis, right knee. POSTOPERATIVE DIAGNOSIS: Tricompartmental osteoarthritis, knee. OPERATION PERFORMED: Right posterior stabilized total knee arthroplasty ([place]ess[place]). ANESTHESIA: Conscious sedation with peripheral nerve block and spinal anesthesia. ANTIBIOTICS GIVEN: 2 g Kefzol, 1 g vancomycin preoperative, 1 g Kefzol at the end of the procedure. PROCEDURE: Patient correctly identified, brought to the operating room. Right lower extremity was prepped, predraped in the routine manner with Betadine scrub solution, wiped off with alcohol, DuraPrep applied. A right free drape applied. A time-out was called. Imaging was available for intraoperative evaluation. Midline incision was utilized. The incision was taken through subcutaneous tissue to the fascia. A subperiosteal dissection was made on the proximal tibia extending up along the proximal medial aspect of the tibia coursing along the medial aspect of the flange of the tibia. The epimysium of the muscle of vastus medialis was dissected off the actual muscle, and the actual muscle itself was resected off its attachments to linea aspera at the distal end of the medial aspect of the intramuscular septum. This gave easy access to the distal medial aspect of the femur. A blunt Hohmann was placed around the femur with no difficulty. This was outside of the suprapatellar pouch. The suprapatellar pouch was incised and the actual suprapatellar fat pad resected using a Bovie. The knee was flexed with the patella subluxed laterally. The knee revealed the presence of severe tricompartmental osteoarthritis. Using the [employer] instrumentation, the tibia was cut to neutral to receive a size 3 universal base plate. This was prepared with the appropriate jig system with the appropriate cut made into the bone bed and associated also the seating of the base plate covered the entire cortex. Once the tibial component had been prepared, the femur was prepared by inserting the intramedullary drill hole and the appropriate saw with distal cutting jig on it to be seated appropriately, and we resected 8 mm of bone off the distal femur. The alignments were in accordance with Lawrence line as well as the epicondylar axis. The base of the jigs all were parallel to the previously cut tibia. A size 3 femoral component was opted for and the appropriate jig cuts were made with the seating of the jig and the appropriate saw cuts being made. It was found that the medial collateral ligament was flimsy and deficit. Reason for this was unclear. There was no surgical mishap or problem. This was a clinical observation and an unusual finding. We, thus, elected for a more constrained liner as will be outlined below. Once the femoral cuts had been made and the trial components were seated, the flexion and extension gaps were even at 11 mm with the laxity on the medial side because of the deficient MCL. Once the bone cuts were made, the 2 sharp towel clip clamps were placed in the patella ligament and the quadriceps tendon to help amrita the patella. A patella cut was made in accordance with Ruby line from patella ligament to quadriceps tendon. The jig applied to the bone and the appropriate lug holes made and confirmed. Once this has been employed and evaluated and seated, the final trial components were then seated, and the knee was brought into full extension with an excellent full range of motion, just the of laxity on the medial side. Once we used the trial constrained polyethylene liner, this proved to be much improved. We opted for a size 11 because the articulation appeared more fluid in motion. A size 9, which also provided excellent alignment and full extension, could well have been used as well. We elected to use a slightly thicker polyethylene because the articulation was definitely more congruent than that of the 9-mm component. Once all the components were opted for, the bone bed was thoroughly lavaged with pulse lavage. The cement was mixed, and cement was pumped into the bone bed. Cementing was in 1 stage, all 3 components, 1st tibia then femur then patella. Once cement had cured, all extraneous cement was removed. Once all cement removed, the definitive size 11 PS polyethylene inserted and the articular was well maintained and excellent. Closure parapatellar tendon and soft tissue medially were closed with No. 1 Vicryl, subcutaneous 1 Vicryl, skin 3-0 Monocryl with Steri-Strips. Drainage 1/8-inch Hemovac to the medial bed of the femur brought out laterally. No complications. Operation tolerated well for routine mobilization as planned. MD COMPA Espinosa/[id number]
--- NOTE | 2019-06-12 14:09 | PN ---
Progress Note (short form) - Note Progress Note: 59F POD1 s/p R TKR under spinal anesthetic with peripheral nerve blocks. Pt states that pain is well controlled and reports no anesthetic complications. AVSS. Continue current regimen.
[2019-06-12] MEDS: ATORVASTATIN CA 20 MG TABLET (FP) PO SCH (21:20)
[2019-06-12] MEDS: ESCITALOPRAM OXALATE 10 MG TABLET PO SCH (21:20)
[2019-06-12] MEDS: traMADol HCL 50 MG TABLET PO PRN (23:06)
[2019-06-13] MEDS: ACETAMINOPHEN 325 MG TABLET (FP) PO SCH ×3 (00:16→12:35)
[2019-06-13] MEDS: traMADol HCL 50 MG TABLET PO PRN ×2 (03:52→08:30)
[2019-06-13] MEDS: oxyCODONE HCL 5 MG TABLET PO PRN (06:17)
[2019-06-13 07:42] LABS: HEMATOCRIT 26.2 % (32.4-45.2); HEMOGLOBIN 8.5 GM/dl (10.7-15.3); MCH 29.9 pg (25.7-33.7); MCHC 32.6 g/dl (32.0-36.0); MEAN CELL VOLUME 91.4 fl (80-96); PLATELET COUNT 145 K/MM3 (134-434); RBC 2.86 M/mm3 (3.60-5.2); RDW 13.9 % (11.6-15.6); WHITE BLOOD COUNT 5.4 K/mm3 (4.0-10.8)
--- NOTE | 2019-06-13 08:24 | PN ---
Progress Note (short form) - Note Progress Note: POD#1 Pt states that the pain is better this am. No nausea or emesis. Office Mail Clerk CP or sob. Voiding on his own. In the afternoon she complained of some dizziness. Vital Signs Period Temp Pulse Resp BP Sys/Grewal Pulse Ox Last 24 Hr 98.0 F-100.4 F 78-89 18-20 90-134/42-55 94-98 GEN: A&0X3 CV: RRR Lungs: CTA b/l ABD: soft, non-distended, non-tender LE: 5/5 dorsi/plantar/EHL b/l. No calf tenderness or swelling b/l. LOLLY/Scds in place. Dressing c/d/i CBC, BMP 06/13/19 06:59 06/12/19 07:29 A/p: 59 yo female s/p Right TKR OOB and ambulate DVT ppx with aspirin 81 mg BID Diet as tolerated D/w Dr. Barnes and will transfuse 1 unit of PRBC today and continue to monitor
--- NOTE | 2019-06-13 09:04 | PN ---
Physical Exam: SUBJECTIVE: Patient seen and examined OBJECTIVE: Vital Signs Period Temp Pulse Resp BP Sys/Grewal Pulse Ox Last 24 Hr 98.0 F-100.4 F 78-89 18-20 90-134/42-55 94-98 GENERAL: Awake, alert, and fully oriented, in no acute distress. LUNGS: Breath sounds equal, clear to auscultation bilaterally. No wheezes, and no crackles. No accessory muscle use. HEART: Regular rate and rhythm, normal S1 and S2 ABDOMEN: Soft, nontender, not distended UPPER EXTREMITIES: 2+ pulses, warm, well-perfused. No cyanosis. No clubbing. No peripheral edema. RIGHT LOWER EXTREMITY: Surgical dressings c/d/i; ice pack; Hemovac drain NEUROLOGICAL: Cranial nerves II-XII intact. Normal speech. Normal gait. PSYCHIATRIC: Cooperative. Good eye contact. Appropriate mood and affect. SKIN: Warm, dry, normal turgor, no rashes or lesions noted, normal capillary refill. Laboratory Results - last 24 hr 06/13/19 06:59 WBC 5.4 RBC 2.86 L Hgb 8.5 L Hct 26.2 L MCV 91.4 MCH 29.9 MCHC 32.6 RDW 13.9 Plt Count 145 MPV 10.0 Active Medications Generic Name Dose Route Start Last Admin Trade Name Freq PRN Reason Stop Dose Admin Acetaminophen 650 mg 06/12/19 00:32 06/13/19 06:14 Tylenol - PO 06/14/19 00:00 650 mg Q6H CONSTANTINE Administration Al Hydroxide/Mg Hydroxide 30 ml 06/11/19 16:35 Mylanta Oral Suspension - PO Q4H PRN DYSPEPSIA Ascorbic Acid 500 mg 06/11/19 22:00 06/12/19 21:22 Vitamin C - PO 500 mg BID CONSTANTINE Administration Aspirin 81 mg 06/11/19 22:00 06/12/19 21:20 Asa - PO 81 mg BID CONSTANTINE Administration Atorvastatin Calcium 20 mg 06/11/19 22:00 06/12/19 21:20 Lipitor - PO 20 mg HS CONSTANTINE Administration Budesonide/Formoterol Fumarate 1 puff 06/11/19 22:00 06/12/19 21:21 Symbicort 160/4.5mcg - IH 1 puff BID CONSTANTINE Administration Escitalopram Oxalate 10 mg 06/11/19 22:00 06/12/19 21:20 Lexapro - PO 10 mg HS [facility] Administration Ferrous Sulfate 325 mg 06/11/19 22:00 06/12/19 21:20 Feosol - PO 325 mg BID [facility] Administration Gabapentin 300 mg 06/11/19 22:00 06/12/19 21:20 Neurontin - PO 06/14/19 21:59 300 mg BID [facility] Administration Lactated Ringer's 1,000 mls @ 125 mls/hr 06/11/19 17:45 06/12/19 07:52 Lactated Ringers Solution IV Not Given ASDIR [facility] Isosorbide Mononitrate 30 mg 06/12/19 10:00 06/12/19 11:07 Imdur - PO 30 mg DAILY [facility] Administration Losartan Potassium 25 mg 06/12/19 10:00 06/12/19 11:06 Cozaar - PO 25 mg DAILY [facility] Administration Magnesium Hydroxide 30 ml 06/11/19 16:35 Milk Of Magnesia - PO PRN PRN CONSTIPATION Metoprolol Succinate 50 mg 06/11/19 22:00 06/12/19 21:22 Toprol Xl - PO Not Given BID [facility] Multivitamins/Minerals/Vitamin C 1 tab 06/12/19 10:00 06/12/19 09:50 Tab-A-Vit - PO 1 tab DAILY [facility] Administration Nitroglycerin 0.4 mg 06/11/19 20:06 Nitrostat - SL PRN PRN CHEST PAIN Ondansetron HCl 4 mg 06/11/19 16:35 Zofran Injection IVPUSH Q6H PRN NAUSEA Oxycodone HCl 5 mg 06/11/19 17:38 Roxicodone - PO Q3H PRN PAIN LEVEL 1-5 Oxycodone HCl 10 mg 06/11/19 17:38 06/13/19 06:17 Roxicodone - PO 10 mg Q3H PRN Administration PAIN LEVEL 6-10 Pantoprazole Sodium 40 mg 06/12/19 10:00 06/12/19 09:50 Protonix - PO 40 mg DAILY [facility] Administration Ranolazine 1,000 mg 06/11/19 22:00 06/12/19 21:21 Ranexa - PO 1,000 mg BID [facility] Administration Senna/Docusate Sodium 2 tablet 06/11/19 22:00 06/12/19 21:20 Pericolace - PO 2 tablet BID CONSTANTINE Administration Tiotropium [place] 2 puff 06/12/19 10:00 06/12/19 11:07 Spiriva Respimat IH 2 puff DAILY CONSTANTINE Administration Tramadol HCl 50 mg 06/11/19 17:38 06/13/19 08:30 Ultram - PO 50 mg Q3H PRN Administration PAIN LEVEL 1 - 3 ASSESSMENT/PLAN Pre op Hgb 11.1 BUN12 Cr 0.59 Intra op Ancef 2g; Vanc 1g EBL<100cc LR 1900ccc ASSESSMENT/PLAN: 59 year-old female with a PMH significant for HTN, HLD, asthma, COPD, CAD s/p ABIOLA x 1, GERD, iron-deficiency anemia, depression, and right knee osteoarthritis s/p right total knee arthroplasty. Right total knee arthroplasty 06/11/19 --POD #2 --perioperative antibiotics per surgery --pain management per surgery --ASA 81mg BID --protonix --bowel regimen --incentive spirometry Anemia secondary to post-surgical blood loss --Hgb 8.5, pre op was 11.1 --complaining of dizziness --transfuse 1U PRBC --reassess Hemovac drain output later today Hypertension --continue losartan Hyperlipidemia --continue Lipitor Asthma COPD --continue Spiriva, Symbicort Coronary artery disease s/p ABIOLA --continue Ranexa, isosorbide, nitro PRN, ToprolXL, Lipitor, ASA GERD --protonix Iron-deficiency anemia --continue ferrous sulfate Depression --continue Lexapro FEN Fluids: PO intake adequate Electrolytes: replete as indicated Nutrition: regular diet DVT prophylaxis: OOB, ambulation, SCDs, TEDs, ASA 81mg BID Physical therapy Dispo: continues to require inpatient care. Full code. Visit type - Emergency Visit Emergency Visit: No - New Patient This patient is new to me today: No - Critical Care Critical Care patient: No
--- NOTE | 2019-06-13 09:04 | PN ---
Physical Exam: SUBJECTIVE: Patient seen and examined in PT room. OBJECTIVE: Vital Signs Period Temp Pulse Resp BP Sys/Grewal Pulse Ox Last 24 Hr 98.0 F-100.4 F 78-89 18-20 90-134/42-55 94-98 GENERAL: Awake, alert, and fully oriented, in no acute distress. LUNGS: Breath sounds equal, clear to auscultation bilaterally. No wheezes, and no crackles. No accessory muscle use. HEART: Regular rate and rhythm, normal S1 and S2 ABDOMEN: Soft, nontender, not distended UPPER EXTREMITIES: 2+ pulses, warm, well-perfused. No cyanosis. No clubbing. No peripheral edema. RIGHT LOWER EXTREMITY: Surgical dressings c/d/i; ice pack; Hemovac drain NEUROLOGICAL: Cranial nerves II-XII intact. Normal speech. Normal gait. PSYCHIATRIC: Cooperative. Good eye contact. Appropriate mood and affect. SKIN: Warm, dry, normal turgor, no rashes or lesions noted, normal capillary refill. Laboratory Results - last 24 hr 06/13/19 06:59 WBC 5.4 RBC 2.86 L Hgb 8.5 L Hct 26.2 L MCV 91.4 MCH 29.9 MCHC 32.6 RDW 13.9 Plt Count 145 MPV 10.0 Active Medications Generic Name Dose Route Start Last Admin Trade Name Freq PRN Reason Stop Dose Admin Acetaminophen 650 mg 06/12/19 00:32 06/13/19 06:14 Tylenol - PO 06/14/19 00:00 650 mg Q6H CONSTANTINE Administration Al Hydroxide/Mg Hydroxide 30 ml 06/11/19 16:35 Mylanta Oral Suspension - PO Q4H PRN DYSPEPSIA Ascorbic Acid 500 mg 06/11/19 22:00 06/12/19 21:22 Vitamin C - PO 500 mg BID CONSTANTINE Administration Aspirin 81 mg 06/11/19 22:00 06/12/19 21:20 Asa - PO 81 mg BID CONSTANTINE Administration Atorvastatin Calcium 20 mg 06/11/19 22:00 06/12/19 21:20 Lipitor - PO 20 mg HS CONSTANTINE Administration Budesonide/Formoterol Fumarate 1 puff 06/11/19 22:00 06/12/19 21:21 Symbicort 160/4.5mcg - IH 1 puff BID CONSTANTINE Administration Escitalopram Oxalate 10 mg 06/11/19 22:00 06/12/19 21:20 Lexapro - PO 10 mg HS CONSTANTINE Administration Ferrous Sulfate 325 mg 06/11/19 22:00 06/12/19 21:20 Feosol - PO 325 mg BID [facility] Administration Gabapentin 300 mg 06/11/19 22:00 06/12/19 21:20 Neurontin - PO 06/14/19 21:59 300 mg BID CONSTANTINE Administration Lactated Ringer's 1,000 mls @ 125 mls/hr 06/11/19 17:45 06/12/19 07:52 Lactated Ringers Solution IV Not Given ASDIR [facility] Isosorbide Mononitrate 30 mg 06/12/19 10:00 06/12/19 11:07 Imdur - PO 30 mg DAILY [facility] Administration Losartan Potassium 25 mg 06/12/19 10:00 06/12/19 11:06 Cozaar - PO 25 mg DAILY [facility] Administration Magnesium Hydroxide 30 ml 06/11/19 16:35 Milk Of Magnesia - PO PRN PRN CONSTIPATION Metoprolol Succinate 50 mg 06/11/19 22:00 06/12/19 21:22 Toprol Xl - PO Not Given BID [facility] Multivitamins/Minerals/Vitamin C 1 tab 06/12/19 10:00 06/12/19 09:50 Tab-A-Vit - PO 1 tab DAILY [facility] Administration Nitroglycerin 0.4 mg 06/11/19 20:06 Nitrostat - SL PRN PRN CHEST PAIN Ondansetron HCl 4 mg 06/11/19 16:35 Zofran Injection IVPUSH Q6H PRN NAUSEA Oxycodone HCl 5 mg 06/11/19 17:38 Roxicodone - PO Q3H PRN PAIN LEVEL 1-5 Oxycodone HCl 10 mg 06/11/19 17:38 06/13/19 06:17 Roxicodone - PO 10 mg Q3H PRN Administration PAIN LEVEL 6-10 Pantoprazole Sodium 40 mg 06/12/19 10:00 06/12/19 09:50 Protonix - PO 40 mg DAILY [facility] Administration Ranolazine 1,000 mg 06/11/19 22:00 06/12/19 21:21 Ranexa - PO 1,000 mg BID [facility] Administration Senna/Docusate Sodium 2 tablet 06/11/19 22:00 06/12/19 21:20 Pericolace - PO 2 tablet BID CONSTANTINE Administration Tiotropium [place] 2 puff 06/12/19 10:00 06/12/19 11:07 Spiriva Respimat IH 2 puff DAILY CONSTANTINE Administration Tramadol HCl 50 mg 06/11/19 17:38 06/13/19 08:30 Ultram - PO 50 mg Q3H PRN Administration PAIN LEVEL 1 - 3 Pre op Hgb 11.1 BUN12 Cr 0.59 Intra op Ancef 2g; Vanc 1g EBL<100cc LR 1900ccc ASSESSMENT/PLAN: 59 year-old female with a PMH significant for HTN, HLD, asthma, COPD, CAD s/p ABIOLA x 1, GERD, iron-deficiency anemia, depression, and right knee osteoarthritis s/p right total knee arthroplasty. Right total knee arthroplasty 06/11/19 --POD #1 --perioperative antibiotics per surgery --pain management per surgery --ASA 81mg BID --protonix --bowel regimen --incentive spirometry --Hemovac drain, monitor output Hypertension --continue losartan Hyperlipidemia --continue Lipitor Asthma COPD --continue Spiriva, Symbicort Coronary artery disease s/p ABIOLA --continue Ranexa, isosorbide, nitro PRN, ToprolXL, Lipitor, ASA GERD --protonix Iron-deficiency anemia --continue ferrous sulfate Depression --continue Lexapro FEN Fluids: PO intake adequate Electrolytes: replete as indicated Nutrition: regular diet DVT prophylaxis: OOB, ambulation, SCDs, TEDs, ASA 81mg BID Physical therapy Dispo: continues to require inpatient care. Full code. Visit type - Emergency Visit Emergency Visit: No - New Patient This patient is new to me today: No - Critical Care Critical Care patient: No - Discharge Referral Referred to [facility] No
[2019-06-13] MEDS: TIOTROPIUM BROMIDE 2.5 MCG (SPIRIVA) RESPIMAT INHALER IH SCH (09:20)
[2019-06-13] MEDS: BUDESONIDE/FORMETEROL FUMARATE 160/4.5 mcg INHALER IH SCH ×2 (09:30→21:24)
[2019-06-13] MEDS: ISOSORBIDE MONONITRATE 30 MG TAB.SR.24H (FP) PO SCH (09:38)
[2019-06-13] MEDS: LOSARTAN POTASSIUM 25 MG TABLET PO SCH (10:38)
[2019-06-13] MEDS: SENNOSIDES/DOCUSATE COMBO (SENNA PLUS) TABLET (UD) PO SCH ×2 (10:38→21:24)
[2019-06-13] MEDS: FERROUS SO4 325 MG TABLET (FP) PO SCH ×2 (10:38→21:24)
[2019-06-13] MEDS: PANTOPRAZOLE 40 MG TABLET PO SCH (10:38)
[2019-06-13] MEDS: MULTIVITAMINS (DAILY MVI) TABLET (FP) PO SCH (10:38)
[2019-06-13] MEDS: ASPIRIN 81 MG CHEWABLE TABLETS PO SCH ×2 (10:38→21:23)
[2019-06-13] MEDS: RANOLAZINE E.R. 500 MG TABLET (FP) PO SCH ×2 (10:38→21:24)
[2019-06-13] MEDS: GABAPENTIN 300 MG CAPSULE PO SCH ×2 (10:38→21:24)
[2019-06-13] MEDS: ASCORBIC ACID 500 MG TABLET (FP) PO SCH ×2 (10:39→21:23)
--- NOTE | 2019-06-13 16:08 | PATH ---
Surgical Pathology Report Patient Name: ROLAN MAHARAJ Med. Rec. #: [id number] /Age/Gender: 1960 (Age: 59) / F Account: [id number] Location: [facility] MED[facility] Taken: 06/11/2019 Received: 06/11/2019 Reported: 06/13/2019 Physicians: Armani Barnes M.D. Specimen(s) Received BONES RIGHT KNEE Clinical History Osteoarthritis right knee Final Diagnosis BONE, KNEE, RIGHT, TOTAL KNEE ARTHROPLASTY: BONE WITH DEGENERATIVE JOINT DISEASE AND REACTIVE SYNOVIUM. Electronically Signed Toshia Aden M.D. Gross Description Received in formalin labeled "right knee bones," is a 12.5 x 11.0 x 1.8 cm aggregate of multiple portions of bone and soft tissue, consistent with knee bones. No areas of eburnation are identified. The articular surfaces are romano-yellow and focally granular. The underlying trabecular bone is yellow and hard. [employer] Driver sections are submitted in one cassette, following decalcification. /06/12/2019 [facility]06/12/2019
--- NOTE | 2019-06-13 16:57 | PN ---
Progress Note (short form) - Note Progress Note: drain removed with tip intact. applied 4x4 gauze/pressure dressing and shyann wraps
[2019-06-13] MEDS: ESCITALOPRAM OXALATE 10 MG TABLET PO SCH (21:23)
[2019-06-13] MEDS: ATORVASTATIN CA 20 MG TABLET (FP) PO SCH (21:24)
[2019-06-14] MEDS: traMADol HCL 50 MG TABLET PO PRN (06:08)
[2019-06-14 06:26] VITALS: BP 137/48; PULSE 88; TEMP 99.2
[2019-06-14 08:18] LABS: BASO % 0.5 % (0-2.0); EOS % 0.8 % (0-4.5); HEMATOCRIT 26.9 % (32.4-45.2); HEMOGLOBIN 8.9 GM/dl (10.7-15.3); LYMPH % 14.8 % (8-40); MCH 30.3 pg (25.7-33.7); MCHC 33.1 g/dl (32.0-36.0); MEAN CELL VOLUME 91.3 fl (80-96); MEAN PLT VOLUME 9.9 fl (7.5-11.1); NEUT % 71.9 % (42.8-82.8); PLATELET COUNT 131 K/MM3 (134-434); RBC 2.94 M/mm3 (3.60-5.2); RDW 13.6 % (11.6-15.6); WHITE BLOOD COUNT 5.5 K/mm3 (4.0-10.8)
[2019-06-14 08:31] LABS: ALBUMIN 2.5 g/dl (3.4-5.0); BILIRUBIN,TOTAL 0.8 mg/dl (0.2-1); CALCIUM 7.8 mg/dl (8.5-10); CREATININE 0.6 mg/dl (0.55-1.3); MAGNESIUM 1.7 mg/dL (1.8-2.4); POTASSIUM 3.8 mmol/L (3.5-5.1); TOT PROT 4.8 g/dl (6.4-8.2)
[2019-06-14] MEDS: ASPIRIN 81 MG CHEWABLE TABLETS PO SCH (09:10)
[2019-06-14] MEDS: LOSARTAN POTASSIUM 25 MG TABLET PO SCH (09:10)
[2019-06-14] MEDS: FERROUS SO4 325 MG TABLET (FP) PO SCH (09:10)
[2019-06-14] MEDS: GABAPENTIN 300 MG CAPSULE PO SCH (09:11)
[2019-06-14] MEDS: RANOLAZINE E.R. 500 MG TABLET (FP) PO SCH (09:11)
[2019-06-14] MEDS: PANTOPRAZOLE 40 MG TABLET PO SCH (09:11)
[2019-06-14] MEDS: SENNOSIDES/DOCUSATE COMBO (SENNA PLUS) TABLET (UD) PO SCH (09:11)
[2019-06-14] MEDS: ISOSORBIDE MONONITRATE 30 MG TAB.SR.24H (FP) PO SCH (09:11)
[2019-06-14] MEDS: TIOTROPIUM BROMIDE 2.5 MCG (SPIRIVA) RESPIMAT INHALER IH SCH (09:11)
[2019-06-14] MEDS ORDERED: MAGNESIUM SULF 50% (8.12 MEQ/2 ML-1 GM VIAL) IVPB ONE (09:30)
[2019-06-14] MEDS: ASCORBIC ACID 500 MG TABLET (FP) PO SCH (10:12)
[2019-06-14] MEDS: MULTIVITAMINS (DAILY MVI) TABLET (FP) PO SCH (10:12)
--- NOTE | 2019-06-14 11:24 | PN ---
Progress Note (short form) - Note Progress Note: POD2 TKR Doing well Feeling better Vtals and blood results as per chart Wound dry No calf tendrness No NVD Patient ambulating in the hallway PLAN D/C home and see in the office in 10 days Pain mx VTE prophylaxis aspirin 81mg bid 3months PT mobilize strengthen
[2019-06-14] MEDS: BUDESONIDE/FORMETEROL FUMARATE 160/4.5 mcg INHALER IH SCH (12:12)
--- NOTE | 2019-06-14 21:26 | DS ---
Physical Exam: 59 year-old female with a PMH significant for HTN, HLD, asthma, COPD, CAD s/p ABIOLA x 1, GERD, iron-deficiency anemia, depression, and right knee osteoarthritis s/p right total knee arthroplasty with Dr. Barnes on 06/11/19. Tolerated surgery well. Patient ready for discharge to receive home physical therapy and follow up with Dr. Barnes in clinic in 1 weeks time. Otherwise patient ambulatory, working with PT, denies current complaints. PE GA comfortable, ambulatory w/ walker, NAD, AAox3 HEENT NC/AT, EOMI, neck supple, MMM Chest CTAB, no crackles or wheezing CVS S1, S2+, RRR, no m/r/g ABd Soft, obese, NT, no guarding, BS+ Ext No LE edema, no calf tenderness, R knee with SUPRIYA wrap and wound dressing Vital Signs - 24 hr 06/13/19 06/13/19 06/14/19 21:43 22:40 01:29 Temperature 98.5 F 98.6 F 97.9 F Pulse Rate 85 87 86 Respiratory 18 18 18 Rate Blood Pressure 113/51 L 110/46 L 114/45 L O2 Sat by Pulse 94 L 93 L Oximetry (%) 06/14/19 06/14/19 06:00 09:37 Temperature 99.2 F Pulse Rate 88 Respiratory 18 18 Rate Blood Pressure 137/48 L O2 Sat by Pulse 99 99 Oximetry (%) Laboratory Tests 06/12/19 06/12/19 06/13/19 07:29 07:29 06:59 WBC 6.5 5.4 RBC 3.25 L 2.86 L Hgb 9.9 L 8.5 L Hct 29.8 L 26.2 L MCV 91.9 91.4 MCH 30.5 29.9 MCHC 33.2 32.6 RDW 13.9 13.9 Plt Count 168 145 MPV 9.8 10.0 Absolute Neuts (auto) Neutrophils % Lymphocytes % Monocytes % Eosinophils % Basophils % Sodium 138 Potassium 4.6 Chloride 106 Carbon Dioxide 27 Anion Gap 5 L BUN 11.0 Creatinine 0.6 Est GFR (CKD-EPI)AfAm 114.02 Est GFR (CKD-EPI)NonAf 98.38 Random Glucose 135 H Calcium 8.4 L Magnesium 1.8 Total Bilirubin AST ALT Alkaline Phosphatase Total Protein Albumin Blood Type Antibody Screen Crossmatch Crossmatch IS Only 06/13/19 06/13/19 06/14/19 10:25 10:30 07:30 WBC 5.5 RBC 2.94 L Hgb 8.9 L Hct 26.9 L MCV 91.3 MCH 30.3 MCHC 33.1 RDW 13.6 Plt Count 131 L MPV 9.9 Absolute Neuts (auto) 4.0 Neutrophils % 71.9 Lymphocytes % 14.8 Monocytes % 12.0 H Eosinophils % 0.8 Basophils % 0.5 Sodium Potassium Chloride Carbon Dioxide Anion Gap BUN Creatinine Est GFR (CKD-EPI)AfAm Est GFR (CKD-EPI)NonAf Random Glucose Calcium Magnesium Total Bilirubin AST ALT Alkaline Phosphatase Total Protein Albumin Blood Type A POSITIVE A POSITIVE Antibody Screen Negative Crossmatch See Detail Crossmatch IS Only See Detail 06/14/19 07:30 WBC RBC Hgb Hct MCV MCH MCHC RDW Plt Count MPV Absolute Neuts (auto) Neutrophils % Lymphocytes % Monocytes % Eosinophils % Basophils % Sodium 135 L Potassium 3.8 Chloride 103 Carbon Dioxide 27 Anion Gap 5 L BUN 10.0 Creatinine 0.6 Est GFR (CKD-EPI)AfAm 114.02 Est GFR (CKD-EPI)NonAf 98.38 Random Glucose 117 H Calcium 7.8 L Magnesium 1.7 L Total Bilirubin 0.8 AST 17 ALT 12 L Alkaline Phosphatase 58 Total Protein 4.8 L Albumin 2.5 L Blood Type Antibody Screen Crossmatch Crossmatch IS Only Home Medications Medication Instructions Recorded Atorvastatin Ca [Lipitor] 20 mg PO HS 11/11/18 Budesonide/Formeterol Fumarate 1 inh PO BID 11/11/18 [SYMBICORT 160/4.5mcg -] Escitalopram Oxalate [Lexapro -] 10 mg PO HS 11/11/18 Famotidine 20 mg PO DAILY 11/11/18 Isosorbide Mononitrate [Isosorbide 30 mg PO DAILY 11/11/18 Mononitrate ER] Losartan Potassium 25 mg PO DAILY 11/11/18 Metoprolol Succinate 50 mg PO BID 11/11/18 Nitroglycerin [Nitrostat] 0.4 mg SL DAILY PRN 11/11/18 Ranolazine [Ranexa] 1,000 mg PO BID 11/11/18 Tiotropium [place] [Spiriva] 1 inh PO DAILY 11/11/18 Acetaminophen [Tylenol .Regular 1,000 mg PO Q8H tablet 11/22/18 Strength -] Aspirin Coated [Ecotrin -] 81 mg PO HS 06/05/19 59 F Obesity, HTN, HLD, CAD, COPD, anemia, depression, severe knee OA, s/p R TKR POD #3, tolerated procedure well ready for DC with home PT and follow up in Ortho clinic. R TKR POD#3 Continue ASA 81mg BID as per Ortho recs for DVT ppx Pain management with tramadol as per ortho recommendation Follow up with Dr. Barnes ortho clinic CAD s/p stent Resume ASA, statin, BB COPD Resume COPD meds HTN Resume home BP medications HLD Resume statin Disposition: Patient to be discharged home with home PT. Patient to follow up with Dr. Barnes in 1 week in Orthopedics clinic and follow with PCP 1 week. Discharge medications: Tramadol 50mg Q6H PRN for breakthrough pain advised not to take with alcohol or other drugs. Continue all other home medications as prescribed. Minutes to complete discharge: 40 Discharge Summary Problems reviewed: Yes Reason For Visit: RIGHT TOTAL KNEE ARTHROPLASTY Condition: Good - Instructions Diet, Activity, Other Instructions: Dr. Barnes Discharge Instructions for Knee Replacement Post Operative Instructions Physical activity Physical Therapist will come to your home for the first 5 days. You will be set up with outpatient PT at your first post-operative visit. Use assistive devices for ambulation at all times. Weight bearing as tolerated on your surgical side. Do not put pillow under knee. May put pillow under heel. Wound care Leave your surgical dressing in place. Do not change the dressing until seen by your surgeon in the office. No baths or showers. Do not submerge your incision. Do not apply any ointments or lotions to your incision. Please call the office if your dressing is soiled/dirty or is falling off. Apply Graduated Compression Stockings (TEDS) to both lower extremities - remove daily for hygiene ONLY. Diet There are no dietary restrictions. Eat healthy, high-fiber foods. Drink 6 to 8 glasses of liquid each day. This will assist in keeping your bowels are regular. Pain management Any pain prescription medication ordered should be taken as prescribed for moderate to severe pain. Do not take additional Tylenol while taking Percocet. Take Aspirin 81 mg two times a day for a total of 6 weeks to prevent blood clots. Call Dr. Barnes for any of the following: Severe pain not relieved by medication Fever of 101 or higher Excessive bleeding or drainage on dressing Inability to urinate If you experience chest pain or shortness of breath, please seek emergency care immediately. Please call the office at to confirm your post-op appointment for the week following surgery. Disposition: HOME - Home Medications Comprehensive Discharge Medication List: Ambulatory Orders Atorvastatin Ca [Lipitor] 20 mg PO HS 11/11/18 Budesonide/Formeterol Fumarate [SYMBICORT 160/4.5mcg -] 1 inh PO BID 11/11/18 Escitalopram Oxalate [Lexapro -] 10 mg PO HS 11/11/18 Famotidine 20 mg PO DAILY 11/11/18 Isosorbide Mononitrate [Isosorbide Mononitrate ER] 30 mg PO DAILY 11/11/18 Losartan Potassium 25 mg PO DAILY 11/11/18 Metoprolol Succinate 50 mg PO BID 11/11/18 Nitroglycerin [Nitrostat] 0.4 mg SL DAILY PRN 11/11/18 Ranolazine [Ranexa] 1,000 mg PO BID 11/11/18 Tiotropium [place] [Spiriva] 1 inh PO DAILY 11/11/18 Acetaminophen [Tylenol .Regular Strength -] 1,000 mg PO Q8H tablet 11/22/18 Aspirin Coated [Ecotrin -] 81 mg PO HS 06/05/19 Prescription Drug Monitoring Program (I-STOP) results: I-STOP reviewed and no issues identified (Search attempt was made on [employer] for Xiao Hernandez with 1960 and yielded no results for this patient.) This patient is new to me today: Yes Date on this admission: 06/14/19 Emergency Visit: Yes ED Registration Date: 06/11/19 Care time: The patient presented to the Emergency Department on the above date and was hospitalized for further evaluation of their emergent condition. Critical Care patient: No - Discharge Referral Referred to [facility] No
== END 2019-06-14 11:26 | disposition home or self-care (01) | DRG 470 ==
LOC: FM/S 10:21
PROVIDERS: ADMIT Internal Medicine
PROC: 0SRC0J9 Replacement of Right Knee Joint with Synthetic Substitute, Cemented, Open Approach (ICD-10-PCS; principal; 2019-06-11 12:00)
PROC: 30233N1 Transfusion of Nonautologous Red Blood Cells into Peripheral Vein, Percutaneous Approach (ICD-10-PCS; 2019-06-13)
DX: M17.11 Unilateral primary osteoarthritis, right knee (principal); D62 Acute posthemorrhagic anemia; I10 Essential (primary) hypertension; E78.5 Hyperlipidemia, unspecified; J44.9 Chronic obstructive pulmonary disease, unspecified; I25.10 Atherosclerotic heart disease of native coronary artery without angina pectoris; K21.9 Gastro-esophageal reflux disease without esophagitis; D50.9 Iron deficiency anemia, unspecified; F32.9 Major depressive disorder, single episode, unspecified; Z95.5 Presence of coronary angioplasty implant and graft; E66.9 Obesity, unspecified; Z68.38 Body mass index [BMI] 38.0-38.9, adult
CPT/HCPCS: 36415; 36430; 36511; 73560-TC-RT-FY; 80048; 80053; 83735; 85025; 85027; 86850; 86900; 86901; 86922; 88304-TC; 88311-TC; 94760; 97116-GP; J0131; P9038; P9058